=== PATIENT | male | born 1950 | race Caucasian/White ===

== ENCOUNTER 2021-10-12 10:57 | Emergency (ER) | payer OTHER ==
[2021-10-12 11:56] LABS: HEMOGLOBIN 14.5 gm/dl (14.0-17.5); RED BLOOD COUNT 4.63 M/UL (4.20-5.50); WHITE BLOOD COUNT 9.5 K/UL (4.5-11.0)
== END 2021-10-12 13:42 | disposition home or self-care (01) ==
LOC: ER1 10:57
PROVIDERS: Emergency Medicine
DX: R55 Syncope and collapse (principal); M25.462 Effusion, left knee; E86.0 Dehydration; I10 Essential (primary) hypertension; F17.210 Nicotine dependence, cigarettes, uncomplicated
CPT/HCPCS: 70450; 71045; 73564; 80053; 82550; 82553; 84484; 85025; 93005; 96374; 99284; J2405